=== PATIENT | female | born 1980 | race Caucasian/White ===

== ENCOUNTER → 2020-05-09 08:48 | Outpatient (BNVA) | payer BC, SELFPAY | PROVIDERS: PCP Pediatrics; Referring Provider Pediatrics; Visit Provider Nurse Practitioner | DX: K58.0 Irritable bowel syndrome with diarrhea (principal) ==

== ENCOUNTER → 2021-05-04 10:17 | Outpatient (BNVA) | payer BC, SELFPAY | PROVIDERS: PCP Pediatrics; Visit Provider Nurse Practitioner ==

== ENCOUNTER 2023-05-04 11:05 | Outpatient (AMB) | payer BC, SELFPAY ==
[2023-05-04 11:07] VITALS: BP 147/86; PULSE 66; BMI 20.5
--- NOTE | 2023-05-04 11:07 | MHC.OFFVIS ---
Intake Vital Signs 05/04/23 11:07 Height 5 ft 11 in Weight 146 lb 13.246 oz BMI 20.5 BP 147/86 H Blood Pressure Location Rt brachial Position Sitting Pulse 66 Intake Visit Reasons: 1 yr follow up Intake Note: Patient presents to in office visit today in one year follow up of IBS. CC: Patient reports no changes and states she is doing the same . Sap Ppm Consultant Required: No Accompanied by: Self / Same As Patient Allergies No Known Allergies Allergy (Verified 05/04/23 11:09) HPI 1 yr follow up HPI Details Assessment & Plan (1) Irritable bowel syndrome with diarrhea: Code(s): K58.0 - Irritable bowel syndrome with diarrhea Plan: She continues to do well on her OTC supplement called Digize. At times she will have cramping in the morning and as soon as she takes this it will calm down and then she will have diarrhea. She continues to be satisfied with this [id number] intervention and she has not needed to use Levsin. She wants to continue to follow with me yearly because she is worried ?with my connective tissue problems? she could have a flare and she wants to have access to GI services. This is obviously fine with me. She denies any other new medical conditions or any new medications since I last saw her. JOOV 1 year, TODAY'S VISIT She continues to do well on her OTC supplement called Digize. At times she will have cramping in the morning and as soon as she takes this it will calm down and then she will have diarrhea. She continues to be satisfied with this [id number] intervention and she has not needed to use Levsin. She wants to continue to follow with me yearly because she is worried ?with my connective tissue problems? she could have a flare and she wants to have access to GI services. This is obviously fine with me. She denies any other new medical conditions or any new medications since I last saw her. JAKE 1 year, [facility] Medical History (Updated 05/04/23 @ 11:26 by PAUL Beckett) Nephrolithiasis Surgical History History of esophagogastroduodenoscopy (EGD) Hx of colonoscopy Family History Mother HTN (hypertension) Father High cholesterol Social History (Updated 05/04/23 @ 11:10 by GRISELDA Tate) Alcohol intake: current Alcohol intake frequency: a few times a month Alcohol type: beer and wine Patient Tobacco Use Status: Never used Tobacco Review of Systems Const Denies fatigue, Denies fever(s), Denies night sweats, Denies poor appetite and Denies weight loss Eyes Details: glasses Reports requires corrective lenses ENT Reports Normal hearing present, Denies dental pain, Denies dysphagia, Denies hearing loss, Denies mouth pain, Denies odynophagia, Denies throat swelling, Denies tongue swelling and Reports other (Dentition adequate) Card Reports no additional complaints Resp Reports no additional complaints GI Denies abdominal pain, Denies melena, Denies bloating, Denies hematochezia, Denies constipation, Denies GI cramping, Denies dysphagia, Denies excessive flatus, Denies early satiety, Denies heartburn, Reports diarrhea, Denies nausea, Denies odynophagia, Denies vomiting and Denies hematemesis Musc Reports myalgias and Reports arthralgias Skin/Breast Denies pruritus, Denies lesions, Denies rash and Denies jaundice Neuro Reports Normal hearing present and Denies Abnormal speech present Endo Denies fatigue Aller/Immun Denies throat swelling and Denies tongue swelling Physical Exam Vital Signs: Last Vital Signs Pulse 66 05/04/23 11:07 BP 147/86 H 05/04/23 11:07 BMI result Body Mass Index 20.5 Const General: cooperative, no acute distress, well developed and well groomed Nutritional Appearance: average body habitus and well nourished Orientation/consciousness: oriented to person, oriented to place and oriented to time Limitations: No language barrier HEENT Head: Yes normocephalic and Yes atraumatic Eyes General: appearance normal, both eyes and all related structures Pupils: Equal, round and reactive pupils present Neck Neck: Yes normal visual inspection and Yes no lymphadenopathy Thyroid: Thyroid normal Resp Effort & Inspection: normal respiratory effort and able to speak in complete sentences Auscultation: clear to auscultation bilaterally Cardio Rate: regular rate Rhythm: regular rhythm Heart sounds: Normal, physiologic split S2 sound present Peripheral pulses: radial pulses present and posterior tibial pulses present GI Inspection: No distended and No Abdominal panniculus present Palpation (GI): Soft to palpation, nontender, no guarding, not rigid and No hepatosplenomegaly present Percussion: Yes normal to percussion Auscultation: normal bowel sounds Rectal Exam - Female: deferred Skin General skin exam: no rashes or lesions noted, turgor normal, skin not dry, no jaundice, No spider nevi and no striae Rashes: no rashes Nails: normal Neuro General: oriented to person, oriented to place and oriented to time Cranial nerves: Yes Equal, round and reactive pupils present and Yes Normal hearing present Speech: No Abnormal speech present Extrem General: Yes normal to inspection, No clubbing, No cyanosis and No edema Psych Appearance: grossly normal and well kempt Mental Status: mental status grossly normal Speech and movement: Normal speech and movement present Affect: normal affect Attitude: cooperative Thought process: Normal thought process present and not confabulating Thought content: Normal thought content present Insight: Fair insight present (Psych) Judgement: Fair judgement present (Psych) Assessment & Plan Assessment & Plan (1) Irritable bowel syndrome with diarrhea: Code(s): K58.0 - Irritable bowel syndrome with diarrhea Plan: She continues to do well on her OTC supplement called Digize. At times she will have cramping in the morning and as soon as she takes this it will calm down and then she will have diarrhea. She continues to be satisfied with this [id number]-[id number] intervention and she has not needed to use Levsin. She wants to continue to follow with me yearly because she is worried ?with my connective tissue problems? she could have a flare and she wants to have access to GI services. This is obviously fine with me. She denies any other new medical conditions or any new medications since I last saw her. JAKE 1 year, (2) Connective tissue disorder: Comment: undifferentiated Code(s): M35.9 - Systemic involvement of connective tissue, unspecified Coding Level of Care Code Est Pt Level 3 (09635) Diagnoses Irritable bowel syndrome with diarrhea K58.0 Connective tissue disorder M35.9
== END 2023-05-04 11:28 | disposition home or self-care (01) ==
PROVIDERS: Visit Provider Nurse Practitioner
DX: K58.0 Irritable bowel syndrome with diarrhea (principal); M35.9 Systemic involvement of connective tissue, unspecified
CPT/HCPCS: 99213

== ENCOUNTER → 2023-05-04 11:05 | Outpatient (BNVA) | payer BC, SELFPAY | PROVIDERS: Visit Provider Nurse Practitioner ==

== ENCOUNTER 2024-05-09 11:15 | Outpatient (AMB) | payer BC, SELFPAY ==
[2024-05-09 11:23] VITALS: BP 147/89; PULSE 57; BMI 20.7
--- NOTE | 2024-05-09 11:23 | MHC.OFFVIS ---
Vital Signs 05/09/24 11:23 Height 5 ft 11 in Weight 148 lb 9.465 oz BMI 20.7 BP 147/89 H Blood Pressure Location Rt brachial Position Sitting Pulse 57 Intake Visit Reasons: 1 year follow up Intake Note: Fatou presents to in office follow up of IBS. CC: Patient denies any changes or any new GI concerns since her last visit. Corporate Trust Officer Required: No Accompanied by: Self / Same As Patient Allergies No Known Allergies Allergy (Verified 05/09/24 11:23) HPI HPI 1 year follow up: Details: Assessment & Plan (1) Irritable bowel syndrome with diarrhea: Code(s): K58.0 - Irritable bowel syndrome with diarrhea Plan: She continues to do well on her OTC supplement called Digize. At times she will have cramping in the morning and as soon as she takes this it will calm down and then she will have diarrhea. She continues to be satisfied with this [id number] intervention and she has not needed to use Levsin. She wants to continue to follow with me yearly because she is worried ?with my connective tissue problems? she could have a flare and she wants to have access to GI services. This is obviously fine with me. She denies any other new medical conditions or any new medications since I last saw her. ROV 1 year, TODAY'S VISIT She continues to do well on her OTC supplement called Digfox. She will come back before the 3 year interval and she will have to call us. [facility] Medical History Nephrolithiasis Surgical History History of esophagogastroduodenoscopy (EGD) Hx of colonoscopy Family History Mother HTN (hypertension) Father High cholesterol Social History Alcohol intake: current Alcohol intake frequency: a few times a month Alcohol type: beer and wine Patient Tobacco Use Status: Never used Tobacco Review of Systems Const Denies fatigue, Denies fever(s), Denies night sweats, Denies poor appetite and Denies weight loss ENT Reports Normal hearing present, Denies dental pain, Denies dysphagia, Denies hearing loss, Denies mouth pain, Denies odynophagia, Denies throat swelling, Denies tongue swelling and Reports other (Dentition adequate) Card Reports no additional complaints Resp Reports no additional complaints GI Details: Denies abdominal pain, Denies melena, Denies bloating, Denies hematochezia, Denies constipation, Denies GI cramping, Denies dysphagia, Denies excessive flatus, Denies early satiety, Denies heartburn, Reports diarrhea, Denies nausea, Denies odynophagia, Denies vomiting and Denies hematemesis Skin/Breast Denies pruritus, Denies lesions, Denies rash and Denies jaundice Neuro Reports Normal hearing present and Denies Abnormal speech present Endo Denies fatigue Aller/Immun Denies throat swelling and Denies tongue swelling Physical Exam Vital Signs: Last Vital Signs Pulse 57 05/09/24 11:23 BP 147/89 H 05/09/24 11:23 BMI result Body Mass Index 20.7 Const General: cooperative, no acute distress, well developed and well groomed Nutritional Appearance: average body habitus and well nourished Orientation/consciousness: oriented to person, oriented to place and oriented to time Limitations: No language barrier HEENT Head: Yes normocephalic and Yes atraumatic Eyes General: appearance normal, both eyes and all related structures Pupils: Equal, round and reactive pupils present Neck Neck: Yes normal visual inspection and Yes no lymphadenopathy Thyroid: Thyroid normal Resp Effort & Inspection: normal respiratory effort and able to speak in complete sentences Auscultation: clear to auscultation bilaterally Cardio Rate: regular rate Rhythm: regular rhythm Heart sounds: Normal, physiologic split S2 sound present Peripheral pulses: radial pulses present and posterior tibial pulses present GI Inspection: No distended and No Abdominal panniculus present Palpation (GI): Soft to palpation, nontender, no guarding, not rigid, No hepatosplenomegaly present and Hepatosplenomegaly present Percussion: Yes normal to percussion Auscultation: normal bowel sounds Rectal Exam - Female: deferred Skin General skin exam: no rashes or lesions noted, turgor normal, skin not dry, no jaundice, No spider nevi and no striae Rashes: no rashes Nails: normal Neuro General: oriented to person, oriented to place and oriented to time Cranial nerves: Yes Equal, round and reactive pupils present and Yes Normal hearing present Speech: No Abnormal speech present Extrem General: Yes normal to inspection, No clubbing, No cyanosis and No edema Psych Thought process: Normal thought process present and not confabulating Thought content: Normal thought content present Insight: Good insight present (Psych) Judgement: Good judgement present (Psych) Assessment & Plan Assessment & Plan (1) Irritable bowel syndrome with diarrhea: Code(s): K58.0 - Irritable bowel syndrome with diarrhea Category: Medical Plan She continues to do well on her OTC supplement called Digize. She will come back before the 3 year interval and she will have to call us. Coding Level of Care Code Est Pt Level 3 (28390) Diagnoses Irritable bowel syndrome with diarrhea K58.0
== END 2024-05-09 12:33 | disposition home or self-care (01) ==
PROVIDERS: PCP Pediatrics; Visit Provider Nurse Practitioner
DX: K58.0 Irritable bowel syndrome with diarrhea (principal)
CPT/HCPCS: 99213

== ENCOUNTER → 2024-05-09 11:15 | Outpatient (BNVA) | payer BC, SELFPAY | PROVIDERS: PCP Pediatrics; Visit Provider Nurse Practitioner ==